=== PATIENT | female | born 1955 | race Caucasian/White ===

== ENCOUNTER 2023-05-22 21:48 | Emergency (ER) | payer MEDICARE, OTHER, SELFPAY ==
--- NOTE | ~2023-05-22 | XR_ITS ---
EXAMINATION: XR WRIST, LEFT CLINICAL INFORMATION: Fall, pain COMPARISON: None available. TECHNIQUE: PA, lateral, and oblique views of the left wrist. FINDINGS: Irregularity involving the distal radius. Fracture is suspected. There is also lucency which may communicate with the proximal carpal row. 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 XR/XR wrist LT min 3V IMPRESSION: Findings suggest fracture of the distal radius
[2023-05-22 22:04] VITALS: BP 152/86; PULSE 75; RESP 18; TEMP 37.2; O2SAT 96; BMI 26.4
--- NOTE | 2023-05-23 00:12 | ED.EXTPRO ---
HPI - Extremity Problem General Chief complaint: Extremity Injury, Upper Stated complaint: fell left wrist pain Time Seen by Provider: 05/22/23 23:43 Source: patient and family Mode of arrival: ambulatory Limitations: no limitations History of Present Illness HPI Narrative: Patient is 67-year-old female presenting to the emergency department with complaint of left wrist pain and swelling after a fall while dancing at a wedding prior to arrival. Patient reports that she fell onto outstretched hands, then fell further forward with all her body weight. She denies any numbness or tingling. Did not take any medications prior to arrival. MD Complaint: extremity pain Onset (ago): hour(s) Pain Consistency: constant Location: left and upper extremity Severity scale (1-10): 10 Quality: aching Radiation: none Relieving factors: rest Exacerbating factors: palpation Associated symptoms: denies other symptoms Related Data Previous Rx's Medication Instructions Recorded oxycodone 5 mg tablet 5 mg PO Q8H PRN pain #9 tabs 05/23/23 Allergies Allergy/AdvReac Type Severity Reaction Status Date / Time No Known Allergies Allergy Verified 05/22/23 22:09 Review of Systems Review of Systems: As per HPI. Yes all other systems are reviewed and are negative Constitutional: Constitutional: Reports as per HPI [facility] Social History Social History Advance Directives: No Advance Directives Information Provided: Yes Physical Exam Vital Signs: Vital Signs: Last Vital Signs Temp 99 F 05/22/23 22:04 Pulse 75 05/22/23 22:04 Resp 18 05/22/23 22:04 BP 152/86 H 05/22/23 22:04 Pulse Ox 96 05/22/23 22:04 O2 Del Method Room Air 05/22/23 22:04 BMI result Body Mass Index 26.4 Const: General: cooperative, healthy appearing and no acute distress Orientation/consciousness: oriented to person, oriented to place, oriented to time and patient oriented x3 Limitations: no limitations HEENT: Head: Yes normocephalic and Yes atraumatic Ears: external ears normal General nose exam: Normal external nose present Face and sinus: Yes face symmetric Mouth: oropharynx normal and moist mucous membranes Throat: Yes uvula midline Eyes: Pupils: Equal, round and reactive pupils present Neck: Neck: Yes normal visual inspection and Yes supple Resp: Effort & Inspection: normal respiratory effort and able to speak in complete sentences Auscultation: clear to auscultation bilaterally Cardio: Rate: regular rate Rhythm: regular rhythm Heart sounds: S1 normal heart sound present and S2 normal heart sound present Skin: General skin exam: elasticity normal and turgor normal Neuro: General: oriented to person, oriented to place, oriented to time, patient oriented x3, moves all extremities, no focal motor deficits and CN's II-XI intact bilaterally Cranial nerves: Yes Equal, round and reactive pupils present Cognition (Neuro): normal cognition Extrem: General: Yes full ROM, Yes no pedal edema and Yes no calf tenderness Left upper extremity: wrist forearm distal medial Details: tenderness Location: of the distal radius, swelling (medial distal radius), abnormal ROM (decreased r/t pain) Details: held in an abnormal fashion Details: in extension and normal vascular exam Psych: Mental Status: mental status grossly normal Affect: normal affect Thought process: Normal thought process present Medications Administered Discontinued Medications Generic Name Dose Route Start Last Admin Trade Name Freq PRN Reason Stop Dose Admin Ketorolac Tromethamine 30 mg 05/23/23 00:21 05/23/23 00:29 Ketorolac Tromethamine 30 Mg/Ml Vial IM 05/23/23 00:22 30 mg ONCE ONE Administration Oxycodone HCl 5 mg 05/23/23 00:21 05/23/23 00:30 Oxycodone Hcl Immed Release 5 Mg Tablet PO 05/23/23 00:22 5 mg ONCE ONE Administration Medical Decision Making Medical Decision Making [facility] Narrative: Patient is 67-year-old female presenting to the emergency department with complaint of left wrist pain and swelling after a fall while dancing at a wedding prior to arrival. On exam patient is awake, A+Ox3, VS WNL, afebrile, normal neurological exam without focal deficits, physical exam findings as above. Given reported symptoms and physical exam findings, initial differential includes contusion, sprain, fracture. X-ray notable for distal radius fracture. My interpretation is in agreement with the radiologist's interpretation. Splint applied as per procedure note, patient neurovascularly intact distally after application with good ROM of fingers and capillary refill <2 seconds. Instructed patient to follow-up with orthopedics in [place] when she returns home. Advised to alternate Tylenol ibuprofen, apply ice intermittently, keep arm elevated while at rest. Will prescribe oxycodone for severe pain. Return precautions discussed at bedside. Patient and verbalized understanding of and agreement with plan. Differential Diagnosis Differential Diagnoses: The differential diagnosis associated with the presentation includes As per MDM. Independent Interpretation I performed an independent interpretation of an: Plain X-Ray Interpretation: Distal radius fracture Radiology Impression Discussion of test interpretation with radiology: I have reviewed the radiologist's reading. Radiologist Impression: XR/XR wrist LT min 3V IMPRESSION: Findings suggest fracture of the distal radius Independent Historian Clinical information obtained from an independent historian. History obtained from or confirmed by: Spouse External Record Review External record reviewed: Inpatient record, Office record and Outpatient record Prescription Management I considered prescription management with: Pain Medication Procedures Orthopedic Splinting/Casting Injury #1: Side: left Upper Extremity Injury Location: wrist Upper Extremity Immobilizer: volar splint Discharge Plan Discharge Clinical Impression: Distal radius fracture, left Patient Disposition: Home, Self-Care Instructions: Wrist Fracture in Adults (ED), R.I.C.E. Treatment (ED) Additional Instructions: You were evaluated in the emergency department today for left wrist pain. Your x-ray shows a distal radius fracture. Please follow up with orthopedics when you return to [place]. You can take 600 mg ibuprofen or 650 mg Tylenol every 6 hours as needed for pain. If necessary, you can alternate these medications every 3 hours. For example, at noon take Tylenol, then at 3:00 p.m. take ibuprofen, then at 6:00 p.m. take Tylenol, etc.. You are being prescribed oxycodone for severe pain, please do not drink alcohol while taking this medication. You should elevate your arm while at rest and apply ice for 10-15 minutes at a time several times daily. Return to the nearest emergency department if you develop new numbness, tingling, change of color in your fingers, or any other concerning symptoms. Prescriptions: New oxycodone 5 mg tablet 5 mg PO Q8H PRN (Reason: pain) Qty: 9 0RF Rx Instructions: Partial Fill upon patient request.
[2023-05-23] MEDS: Ketorolac Tromethamine 30 MG/ML VIAL IM (00:29)
[2023-05-23] MEDS: oxyCODONE HCl Immed Release 5 MG TABLET PO (00:30)
[2023-05-23 01:53] VITALS: BP 135/78; PULSE 75; RESP 18; O2SAT 100
== END 2023-05-23 01:56 | disposition home or self-care (01) ==
PROVIDERS: Emergency Provider Student in an Organized Health Care Education/Training Program
DX: S52.502A Unspecified fracture of the lower end of left radius, initial encounter for closed fracture (principal); W01.0XXA Fall on same level from slipping, tripping and stumbling without subsequent striking against object, initial encounter; Y93.41 Activity, dancing; Y92.29 Other specified public building as the place of occurrence of the external cause; Y99.9 Unspecified external cause status
CPT/HCPCS: 29125; 73110; 96372; 99284; J1885